=== PATIENT | male | born 1985 | race Caucasian/White ===

== ENCOUNTER 2016-05-14 13:51 | Emergency (ER) | payer MEDICARE, OTHER ==
[2016-05-14 18:02] LABS: BLOOD UREA NITROGEN 14 mg/dL (7-18); CALCIUM 8.1 mg/dL (8.7-10.7); CARBON DIOXIDE 23 mmol/L (21-32); CREATININE 0.8 mg/dL (0.6-1.3); GLUCOSE,RANDOM 102 mg/dL (70-99); SODIUM 138 mmol/L (136-145)
[2016-05-14 18:07] LABS: POTASSIUM 4.5 mmol/L (3.5-5.1)
== END 2016-05-14 18:39 | disposition home or self-care (01) ==
LOC: ER 13:51
PROVIDERS: General Practice
DX: N50.82 Scrotal pain (principal); N04.9 Nephrotic syndrome with unspecified morphologic changes; R60.0 Localized edema; I10 Essential (primary) hypertension; Z79.899 Other long term (current) drug therapy
CPT/HCPCS: 36415; 80048; 96374; 99070; 99283; 99283-25

== ENCOUNTER → 2016-05-21 | Day surgery (SDC) | payer MEDICARE, OTHER ==
[~2016-05-21] VITALS: Ht 185.4 cm; Wt 181.9 kg
== END ==
LOC: OPS 09:47
PROC: 0WJM0ZZ Inspection of Male Perineum, Open Approach (ICD-10-PCS; principal; 2016-05-21)
DX: R59.1 Generalized enlarged lymph nodes (principal); R93.5 Abnormal findings on diagnostic imaging of other abdominal regions, including retroperitoneum; F41.9 Anxiety disorder, unspecified; F31.9 Bipolar disorder, unspecified; R68.89 Other general symptoms and signs; E78.5 Hyperlipidemia, unspecified; E03.9 Hypothyroidism, unspecified; N04.9 Nephrotic syndrome with unspecified morphologic changes; E11.9 Type 2 diabetes mellitus without complications; R63.5 Abnormal weight gain; Z68.43 Body mass index [BMI] 50.0-59.9, adult; Z80.9 Family history of malignant neoplasm, unspecified; Z82.49 Family history of ischemic heart disease and other diseases of the circulatory system; G40.909 Epilepsy, unspecified, not intractable, without status epilepticus; Z79.899 Other long term (current) drug therapy
CPT/HCPCS: 82962; 99070; J2704; J3010